=== PATIENT | male | born 1945 | race Caucasian/White ===

== ENCOUNTER 2019-04-09 18:24 | Emergency (ER) | payer BC, OTHER ==
[~2019-04-09] VITALS: Ht 190.5 cm; Wt 102.1 kg
[2019-04-09] MEDS ORDERED: DIVA-78 PO (18:51)
[2019-04-09] MEDS ORDERED: ZINC454P TP (18:51)
[2019-04-09] MEDS ORDERED: POTA20TA83 PO (18:51)
[2019-04-09] MEDS ORDERED: LEVO50TA8 PO (18:51)
[2019-04-09] MEDS ORDERED: LISI-607 PO (18:51)
[2019-04-09] MEDS ORDERED: CLOT15CR5 TP (18:51)
[2019-04-09] MEDS ORDERED: MEMA10TA PO (18:51)
[2019-04-09] MEDS ORDERED: ASPI-1152 PO (18:51)
[2019-04-09] MEDS ORDERED: FURO20TA4 PO (18:51)
[2019-04-09] MEDS ORDERED: DONE10TA44 PO (18:51)
[2019-04-09] MEDS ORDERED: OLAN10TA3 PO (18:51)
[2019-04-09] MEDS ORDERED: LORA-259 PO (18:52)
[2019-04-09] MEDS ORDERED: MENT71OI TP (18:52)
--- NOTE | 2019-04-09 22:20 | NUR ---
CALLED [facility] FOR TRANSPORT BACK TO [facility], ETA 30-40 MIN, TRIP #[id number]
--- NOTE | 2019-04-09 23:38 | NUR ---
REPORT GIVEN TO DEB AT [facility]
--- NOTE | 2019-04-09 23:40 | NUR ---
PT LEFT VIA PRIVATE AMBULANCE, LEFT IN STABLE CONDTION, REPORT GIVEN TO FACILITY, SON (RESPONSIBLE [employer]) AWARE, ALL PPW GIVEN TO AMBULANCE STAFF, AWARE OF PT'S DISPOSITION.
[2019-04-09 23:43] VITALS: BP 119/65
== END 2019-04-09 23:50 | disposition home or self-care (01) ==
LOC: EDBD 18:32 → ER 18:32
DX: M25.562 Pain in left knee (principal); M25.551 Pain in right hip; F03.90 Unspecified dementia, unspecified severity, without behavioral disturbance, psychotic disturbance, mood disturbance, and anxiety; F20.9 Schizophrenia, unspecified; Z79.899 Other long term (current) drug therapy; Z79.82 Long term (current) use of aspirin; W19.XXXA Unspecified fall, initial encounter; Y93.89 Activity, other specified; Y92.89 Other specified places as the place of occurrence of the external cause; Y99.8 Other external cause status
CPT/HCPCS: 72170-TC; 72192-TC; 73502; 73560-TC